=== PATIENT | male | born 1975 | race Asian ===

== ENCOUNTER 2017-02-26 22:49 | Emergency (ER) | payer OTHER ==
[~2017-02-26] VITALS: Ht 193 cm; Wt 118.0 kg
[2017-02-27] MEDS ORDERED: CEFAZOLIN 1000MG PREMIX 50 ML IV ONE (03:45)
[2017-02-27 04:07] LABS: HEMATOCRIT. 37.4 % (42.0-52.0); HEMOGLOBIN. 12.6 g/dL (14.0-18.0); MEAN CORPUSCULAR HEMOGLOBIN 29.3 pg (28.0-32.0); MEAN CORPUSCULAR VOLUME 86.9 fL (80.0-94.0); MEAN PLATELET VOLUME 7.4 fl (7.4-10.4); PLATELET 252 x1000/uL (130-400); RED BLOOD CELL COUNT 4.31 mill/uL (4.7-6.1); RED CELL DISTRIBUTION WIDTH 13.4 % (11.6-14.6)
[2017-02-27 04:14] LABS: CARBON DIOXIDE 30 mEq/L (21-32); CHLORIDE 104 mEq/L (98-107)
[2017-02-27 05:22] LABS: ATYPICAL LYMPHOCYTES 1; PLATELET ESTIMATE NORMAL
[2017-02-27 06:02] VITALS: BP 132/80
== END 2017-02-27 06:05 | disposition home or self-care (01) ==
LOC: ER 22:49
DX: L03.116 Cellulitis of left lower limb (principal); L03.115 Cellulitis of right lower limb
CPT/HCPCS: 36415; 80048; 85025; 85379; 93970; 96365; 99285; J0690; Z7610